=== PATIENT | female | born 1960 | race Caucasian/White ===

== ENCOUNTER 2017-04-28 10:28 | Emergency (ER) | payer OTHER ==
[~2017-04-28] VITALS: Ht 160 cm; Wt 45.4 kg
[~2017-04-28 10:28] MED LIST: BENICAR20 MG PO; CELEXA40 MG PO
== END 2017-04-28 10:53 | disposition home or self-care (01) ==
LOC: ED 10:28
DX: R06.02 Shortness of breath (principal); R53.1 Weakness; R05 Cough
CPT/HCPCS: 99281

== ENCOUNTER 2017-06-05 12:03 | Emergency (ER) | payer OTHER ==
[~2017-06-05] VITALS: Ht 160 cm; Wt 45.4 kg
== END 2017-06-05 14:40 | disposition home or self-care (01) ==
LOC: ED 12:03
DX: I95.89 Other hypotension (principal); R53.1 Weakness
CPT/HCPCS: 99282

== ENCOUNTER 2017-07-03 11:14 | Emergency (ER) | payer OTHER ==
[~2017-07-03] VITALS: Ht 160 cm; Wt 45.4 kg
== END 2017-07-03 13:20 | disposition home or self-care (01) ==
LOC: ED 11:14
DX: F41.8 Other specified anxiety disorders (principal); F32.89 Other specified depressive episodes
CPT/HCPCS: 93005

== ENCOUNTER 2017-12-16 10:59 | Emergency (ER) | payer OTHER ==
[~2017-12-16] VITALS: Ht 160 cm; Wt 43.1 kg
== END 2017-12-16 12:38 | disposition home or self-care (01) ==
LOC: ED 10:59
DX: F41.0 Panic disorder [episodic paroxysmal anxiety] (principal)
CPT/HCPCS: 96372; 99282; J2060

== ENCOUNTER 2018-07-03 14:49 | Emergency (ER) | payer OTHER ==
[~2018-07-03] VITALS: Ht 157.5 cm; Wt 49.9 kg
== END 2018-07-03 16:10 | disposition home or self-care (01) ==
LOC: ED 14:49
DX: R06.00 Dyspnea, unspecified (principal); R06.02 Shortness of breath; J68.0 Bronchitis and pneumonitis due to chemicals, gases, fumes and vapors
CPT/HCPCS: 94664; 96372; 99283; J1020; J2060

== ENCOUNTER 2018-09-12 14:51 | Emergency (ER) | payer OTHER ==
[~2018-09-12] VITALS: Ht 157.5 cm; Wt 49.9 kg
[2018-09-12 15:03] VITALS: BP 130/72; TEMP 98.4
== END 2018-09-12 15:18 | disposition home or self-care (01) ==
LOC: ED 14:51
DX: F41.9 Anxiety disorder, unspecified (principal)
CPT/HCPCS: 99281

== ENCOUNTER 2018-12-26 11:26 | Emergency (ER) | payer OTHER ==
[~2018-12-26] VITALS: Ht 157.5 cm; Wt 43.1 kg
[2018-12-26 11:35] VITALS: BP 174/67; TEMP 97.6
== END 2018-12-26 12:34 | disposition home or self-care (01) ==
LOC: ED 11:26
DX: K52.9 Noninfective gastroenteritis and colitis, unspecified (principal); E86.0 Dehydration
CPT/HCPCS: 99282

== ENCOUNTER 2019-08-26 16:13 | Outpatient (CLI) | payer BC | END 2019-08-26 19:33 | disposition home or self-care (01) | LOC: RAD 16:13 | DX: J20.8 Acute bronchitis due to other specified organisms (principal) ==

== ENCOUNTER 2019-09-19 15:08 | Emergency (ER) | payer BC ==
[~2019-09-19] VITALS: Ht 160 cm; Wt 45.4 kg
[2019-09-19 15:16] VITALS: BP 108/72; TEMP 97.3
== END 2019-09-19 16:54 | disposition home or self-care (01) ==
LOC: ED 15:08
DX: J20.9 Acute bronchitis, unspecified (principal); J44.0 Chronic obstructive pulmonary disease with (acute) lower respiratory infection; J45.998 Other asthma
CPT/HCPCS: 87502; 94664; 96372; 99283; 99284; J2930

== ENCOUNTER 2020-01-13 16:23 | Emergency (ER) | payer BC ==
[~2020-01-13] VITALS: Ht 160 cm; Wt 45.4 kg
[2020-01-13 16:34] VITALS: TEMP 97.3
[2020-01-13 17:27] LABS: POTASSIUM 3.7 mmol/L (3.6-5.2)
[2020-01-13 17:28] LABS: PLATELET COUNT 278 K/uL (152-353)
[2020-01-13 20:42] VITALS: BP 165/94
== END 2020-01-13 21:06 | disposition home or self-care (01) ==
LOC: ED 16:23
PROVIDERS: Family Medicine
DX: E86.0 Dehydration (principal); E87.1 Hypo-osmolality and hyponatremia; B34.9 Viral infection, unspecified; K29.60 Other gastritis without bleeding; Z03.818 Encounter for observation for suspected exposure to other biological agents ruled out
CPT/HCPCS: 80053; 81000; 82150; 83690; 85027; 87635; 96360; 96365; 96374; 96375; 99284; J1885; J2405; J3490; U0002

== ENCOUNTER 2020-04-07 11:14 | Emergency (ER) | payer OTHER ==
[~2020-04-07] VITALS: Ht 160 cm; Wt 45.4 kg
[2020-04-07 12:01] LABS: PLATELET COUNT 279 K/uL (152-353)
[2020-04-07 12:18] VITALS: BP 135/91; TEMP 98.8
== END 2020-04-07 12:25 | disposition home or self-care (01) ==
LOC: ED 11:14
PROVIDERS: Family Medicine
DX: L03.115 Cellulitis of right lower limb (principal)
CPT/HCPCS: 36415; 84550; 85027; 99283

== ENCOUNTER 2020-04-10 10:29 | Outpatient (CLI) | payer OTHER | END 2020-04-10 19:40 | disposition home or self-care (01) | LOC: US 10:29 | DX: L03.115 Cellulitis of right lower limb (principal) ==

== ENCOUNTER 2021-01-11 13:29 | Emergency (ER) | payer OTHER ==
[~2021-01-11] VITALS: Ht 160 cm; Wt 45.4 kg
[2021-01-11 13:39] VITALS: BP 131/94; TEMP 97.3
[2021-01-11 14:22] LABS: PLATELET COUNT 271 K/uL (152-353)
[2021-01-11 14:30] LABS: POTASSIUM 4.2 mmol/L (3.6-5.2)
== END 2021-01-11 16:59 | disposition home or self-care (01) ==
LOC: ED 13:29
PROVIDERS: Family Medicine
DX: E87.1 Hypo-osmolality and hyponatremia (principal); R10.84 Generalized abdominal pain; Z53.29 Procedure and treatment not carried out because of patient's decision for other reasons
CPT/HCPCS: 80053; 81000; 85027; 96360; 99284

== ENCOUNTER 2021-01-31 11:28 | Outpatient (CLI) | payer OTHER ==
[2021-01-31 12:50] LABS: POTASSIUM 4.1 mmol/L (3.6-5.2)
[2021-01-31 12:57] LABS: PLATELET COUNT 263 K/uL (152-353)
== END 2021-01-31 22:45 | disposition home or self-care (01) ==
LOC: LABW 11:28
PROVIDERS: ATTEND Nurse Practitioner Family
DX: E87.1 Hypo-osmolality and hyponatremia (principal); D72.819 Decreased white blood cell count, unspecified
CPT/HCPCS: 36415; 80053; 82607; 82728; 82746; 83540; 83550; 83735; 83930; 83935; 84439; 84443; 84481; 85027; 85044

== ENCOUNTER 2022-09-07 12:09 | Emergency (ER) | payer OTHER ==
[~2022-09-07] VITALS: Ht 157.5 cm; Wt 43.5 kg
[2022-09-07 12:15] VITALS: BP 148/93; TEMP 98.5
[2022-09-07 12:37] LABS: PLATELET COUNT 237 K/uL (152-353)
[2022-09-07 12:59] LABS: PARTIAL THROMBOPLASTIN TIME 27.4 SECONDS (24.5-33.6)
[2022-09-07 13:00] LABS: POTASSIUM 3.6 mmol/L (3.6-5.2)
== END 2022-09-07 15:10 | disposition home or self-care (01) ==
LOC: ED 12:09
PROVIDERS: Family Medicine
DX: E87.1 Hypo-osmolality and hyponatremia (principal); J40 Bronchitis, not specified as acute or chronic; R05.8 Other specified cough
CPT/HCPCS: 80053; 80307; 81002; 82550; 84484; 85027; 85610; 85730; 93005; 94664; 96360; 99284